=== PATIENT | male | born 1935 | race Caucasian/White ===

== ENCOUNTER 2025-05-05 21:51 | Inpatient (IN) | payer OTHER ==
[~2025-05-05] VITALS: Ht 177.8 cm; Wt 86.2 kg
[2025-05-05] MEDS ORDERED: PATADAY5 ML OPH (22:02)
[2025-05-05] MEDS ORDERED: AMOX-CLAV 875-1 EACH PO (22:04)
[2025-05-05] MEDS ORDERED: LOSARTAN POTAS100 M1 PO (22:06)
[2025-05-05] MEDS ORDERED: ALLEGRA ALLERG180 M2 PO (22:06)
[2025-05-05] MEDS ORDERED: MULTIVITAMINS1 EAC6 PO (22:07)
[2025-05-05] MEDS ORDERED: VITAMIN C1000 M5 PO (22:07)
[2025-05-05] MEDS ORDERED: LIPITOR40 MG PO (22:08)
[2025-05-05] MEDS ORDERED: ATIVAN1 MG PO (22:08)
[2025-05-05] MEDS ORDERED: VITAMIN D350 MC2 PO (22:09)
[2025-05-05] MEDS ORDERED: LAMICTAL200 MG PO (22:10)
[2025-05-05] MEDS ORDERED: LORazepam 1 MG TAB PO PRN (22:15)
[2025-05-05] MEDS ORDERED: hydrOXYzine pamoate 25 MG CAP PO PRN (22:15)
[2025-05-05] MEDS ORDERED: Water, Sterile 10 ML VIAL IM PRN (22:15)
[2025-05-05] MEDS ORDERED: hydrOXYzine hydrochloride 50 MG/ML VIAL IM PRN (22:15)
[2025-05-05] MEDS ORDERED: Ziprasidone Mesylate 20 MG VIAL IM PRN (22:15)
[2025-05-05 22:34] VITALS: BP 154/95
[2025-05-05] MEDS ORDERED: ACETAMINOPHEN 325 MG TAB PO PRN (22:40)
[2025-05-05] MEDS ORDERED: Magnesium Hydroxide 30 ML UDC PO PRN (22:40)
[2025-05-05] MEDS ORDERED: MG-AL HYDROXIDE/SIMETICONE 30 ML UDC PO PRN (22:40)
[2025-05-06 07:01] LABS: BASO # 0.1 10*3/uL (0.0-0.1); BASO % 0.9 % (0.0-1.0); EOS # 0.4 10*3/uL (0.0-0.4); EOS % 4.9 % (1.0-4.0); HEMATOCRIT 37.8 % (42.0-52.0); MEAN CELL VOLUME 86.1 fl (80.0-94.0); MEAN CORPUSCULAR HGB 28.2 pg (27.0-31.0); MEAN CORPUSCULAR HGB CONC 32.8 g/dl (33.0-37.0); MEAN PLATELET VOLUME 9.7 fl (9.6-12.3); MONO # 0.8 10*3/uL (0.1-1.0); MONO % 10.8 % (3.0-9.0); NEUT # 4.9 10*3/uL (2.3-7.9); NEUT % 65.8 % (47.0-73.0); PLATELET COUNT AUTOMATED 266 10*3/uL (130-400); RED BLOOD COUNT 4.39 10*6/uL (4.50-5.90); RED CELL DISTRI WIDTH 15.1 % (0-14.5); WHITE BLOOD COUNT 7.5 10*3/uL (4.8-10.8)
[2025-05-06 07:40] LABS: ALKALINE PHOSPHATASE 77 U/L (46-116); BUN 16 mg/dl (9-23); CHLORIDE 102 mmol/L (98-107); CHOLESTEROL 116 mg/dL (<200); LDL CHOLESTEROL 63 mg/dL (9-159); POTASSIUM 4.1 mmol/L (3.4-5.1); SGPT/ALT 22 U/L (5-49); TOTAL PROTEIN 6.2 gm/dL (6.0-8.0); TRIGLYCERIDES 73 mg/dl (<150)
[2025-05-06 08:00] VITALS: BP 151/75
[2025-05-06 08:00] LABS: VITAMIN D, 25-HYDROXY 52.5 ng/mL (30-100)
[2025-05-06] MEDS ORDERED: risperiDONE 0.25 MG TAB PO SCH (09:00)
[2025-05-06] MEDS ORDERED: LAMOTRIGINE 100 MG TAB PO SCH (09:00)
[2025-05-06] MEDS ORDERED: Menthol/Zinc Oxide 4 GM THIN T SCH (09:00)
[2025-05-06] MEDS ORDERED: Rivastigmine Tartrate 4.6 MG/24 HR PATCH T SCH (11:20)
[2025-05-06 14:00] VITALS: BP 151/75
[2025-05-06 20:00] VITALS: BP 155/66
[2025-05-06] MEDS ORDERED: ATORVASTATIN CALCIUM 40 MG TABLET PO SCH (21:00)
[2025-05-07 08:00] VITALS: BP 157/83
[2025-05-07] MEDS ORDERED: Losartan Potassium 50 MG TAB PO SCH (09:00)
[2025-05-07] MEDS ORDERED: LAMOTRIGINE 100 MG TAB PO SCH ×2 (09:00)
[2025-05-07] MEDS ORDERED: Rivastigmine Tartrate 9.5 MG/24 HR PATCH T SCH (09:00)
[2025-05-07 20:00] VITALS: BP 154/81
[2025-05-07] MEDS ORDERED: FOAM BANDAGE 1 EACH BANDAGE T ONE (22:16)
[2025-05-08 08:20] VITALS: BP 152/50
[2025-05-08] MEDS ORDERED: RISPERIDONE0.25 M2 PO (13:10)
[2025-05-08] MEDS ORDERED: LAMOTRIGINE100 MG PO (13:10)
[2025-05-08] MEDS ORDERED: RIVASTIGMINE1 EAC1 T (13:10)
== END 2025-05-08 13:28 | disposition home or self-care (01) | DRG 883 ==
LOC: 3N 21:51
PROVIDERS: ADMIT Psychiatry & Neurology Psychiatry; ATTEND Psychiatry & Neurology Psychiatry
PROC: GZHZZZZ Group Psychotherapy (ICD-10-PCS; principal; 2025-05-05)
PROC: GZ51ZZZ Individual Psychotherapy, Behavioral (ICD-10-PCS; 2025-05-05)
DX: F63.81 Intermittent explosive disorder (principal); F41.1 Generalized anxiety disorder; G31.84 Mild cognitive impairment of uncertain or unknown etiology; D64.9 Anemia, unspecified; R73.9 Hyperglycemia, unspecified; I10 Essential (primary) hypertension; E78.5 Hyperlipidemia, unspecified; Z88.5 Allergy status to narcotic agent; Z79.899 Other long term (current) drug therapy